=== PATIENT | male | born 1980 ===

== ENCOUNTER 2023-07-13 06:10 | Day surgery (SDC) | payer OTHER ==
[2023-07-13] MEDS ORDERED: fentaNYL CITRATE 50 MCG/ML AMPUL IV PUSH ONE (10:45)
[2023-07-13] MEDS ORDERED: MIDAZOLAM HCL 2 MG/2 ML VIAL IV ONE (10:45)
[2023-07-13] MEDS ORDERED: DIPHENHYDRAMINE HCL 50 MG/ML VIAL 1ML IV ONE (10:45)
== END 2023-07-13 12:10 | disposition home or self-care (01) ==
LOC: AMB-ENDOS 06:10
PROVIDERS: ATTEND Colon & Rectal Surgery
DX: K63.5 Polyp of colon (principal); K57.30 Diverticulosis of large intestine without perforation or abscess without bleeding; Z83.719 Family history of colon polyps, unspecified; I10 Essential (primary) hypertension